=== PATIENT | male | born 1950 | race Caucasian/White ===

== ENCOUNTER 2019-10-11 09:23 | Observation (INO) ==
--- NOTE | 2019-09-14 13:12 | PAT Medication Instructions ---
Medication Instructions Date of Service September 14, 2019 Home Medications clindamycin phosphate 1 applic TOPICAL BID meloxicam 15 mg PO QAM minocycline 50 mg PO QAM zolpidem 10 mg PO HS PRN ASK your surgeon for instructions meloxicam 15 mg PO QAM STOP taking 24 hours before surgery clindamycin phosphate 1 applic TOPICAL BID Take morning of surgery minocycline 50 mg PO QAM Take evening before surgery zolpidem 10 mg PO HS PRN (if needed) Other Notes If you have any questions please call us at [phone] or [phone] or [phone] or [phone]
--- NOTE | 2019-09-17 15:41 | Anesthesiology Consultation ---
Date of Service September 17, 2019 Assessment & Plan (1) Encounter for pre-operative examination: COVID Status: As of 09/16 assessment, patient denies travel to endemic area, known exposure/sick contacts, or symptoms of COVID19. Patient instructed that they and their household members must follow strict social distancing guidelines, wear a mask in public and avoid travel for 14 days prior to surgery. Preoperative COVID19 testing to be completed prior to surgery per surgeon's arra ngements. Patient made aware to self-isolate as much as possible between COVID testing and surgery. Chart Review Chart Review: Acceptable Risk for Surgery and Patient seen in Pre Admission Testing Teaching & Discussion Instructed NPO after midnight before surgery, except medications with 15 cc of water. Medication instructions provided according to the PAT guidelines. History Surgery Operation Date: 10/11/19 11:40 Proposed Procedures p Left Total Knee Arthroplasty - Nixon Mitchell MD Height/Weight Height: 5 ft 11 in Weight: 119 kg Allergies Allergy/AdvReac Type Severity Reaction Status Date / Time No Known Allergies Allergy Verified 09/06/19 15:35 Medications Home Medications Medication Instructions Recorded Confirmed Last Taken clindamycin phosphate 1 applic TOPICAL BID 09/06/19 09/06/19 Unknown meloxicam 15 mg PO QAM 09/06/19 09/06/19 Unknown minocycline 50 mg PO QAM 09/06/19 09/06/19 Unknown zolpidem 10 mg PO HS PRN 09/06/19 09/06/19 Unknown Past Medical History Medical History (Updated 09/18/19 @ 09:41 by Butch Sheth) Obesity Sleep apnea CPAP Exercise / Class Metabolic Activity II 4-5 Yardwork/Stairs/Walk up hill (Denies CP or SOB with 1 FOS) Past Surgical History Surgical History Achilles rupture, left REPAIR Achilles rupture, right REPAIR History of colonoscopy History of tonsillectomy Tarsal tunnel syndrome of left side Past Anesthesia History No Hx of Anesthesia Complications and No Family Hx of Anesthesia Complications History of PONV No Hx of PONV and No Hx of Motion Sickness Social History Smoking Status: Former smoker Do You Dip or Chew Tobacco: No Smoking End Date: QUIT 2009 Hx Alcohol Use: Yes Alcohol type: beer alcohol intake frequency: a few times a week Hx Substance Use: No Review of Systems Pt denies any recent chest pain, shortness of breath, palpitations, cough, fever, URI, or uncontrolled acid reflux. Physical Exam Vital Signs BP: 155/84 P: 70bpm SPO2: 98% RA T: 98.7 F R: 16 ENMT Mouth: + dental restorations (gold overlays on bottom molars); no chipped teeth and no loose teeth Thyromental Distance: > or= 3.5 Finger Breadths (4) Mallampati Class: I Neck + short neck; neck extension not limited Respiratory normal respiratory effort Auscultation: lungs clear to auscultation bilaterally Cardiovascular Rate/Rhythm: regular rate and regular rhythm Heart Sounds: + murmur (I/ systolic mitral area) Extremities: no edema Testing Laboratory Results 09/17/19 15:56 09/17/19 15:56 PT 10.8 Seconds (9.0-12.0) 09/17/19 15:56 INR 1.0 (0.9-1.1) 09/17/19 15:56 APTT 28.1 Seconds (21.0-31.0) 09/17/19 15:56 Hemoglobin A1c 5.7 % (4.5-5.6) H 09/17/19 15:56 Urine Color Dark Yellow 09/17/19 Unknown Urine Appearance Clear (Clear) 09/17/19 Unknown Urine pH 6.0 (4.5-7.5) 09/17/19 Unknown Ur Specific [place] 1.023 (1.000-1.030) 09/17/19 Unknown Urine Protein Negative (Negative) 09/17/19 Unknown Urine Glucose (UA) Negative (Negative) 09/17/19 Unknown Urine Ketones Negative (Negative) 09/17/19 Unknown Urine Nitrite Negative (Negative) 09/17/19 Unknown Ur Leukocyte Esterase Negative (Negative) 09/17/19 Unknown Blood Type O Positive 09/17/19 15:56 Antibody Screen NEGATIVE 09/17/19 15:56 Electrocardiogram Date: 09/17/19 Findings: + NSR @ (64bpm) Chest X-Ray Date: 09/17/19 Findings: + NAD
--- NOTE | 2019-09-17 16:17 | XRay Report ---
XR chest Pre-admission PA/Lat CLINICAL HISTORY: pat preoperative COMPARISON STUDY: No previous studies for comparison. FINDINGS: The bones soft tissues and hemidiaphragms are normal. The cardiomediastinal silhouette is n ormal. The lungs are clear. The pulmonary vasculature is normal. IMPRESSION: Negative chest. ACT 112: Negative or not required by law. The above report was generated using voice recognition software. It may contain grammatical, syntax or spelling errors. Electronically signed by: Lai Cardoza M.D. 09/17/2019 4:15 PM
[2019-09-17 16:19] LABS: Basophils # (auto) 0.04 K/uL (0-0.2); Basophils % (auto) 0.6 %; Eosinophils # (auto) 0.28 K/uL (0-0.5); Eosinophils % (auto) 4.2 %; Hematocrit (blood only) 39.8 % (42-52); Hemoglobin 13.4 g/dL (14.0-18.0); Immature Granulocytes # (auto) 0.01 K/uL (0.00-0.02); Immature Granulocytes % (auto) 0.1 %; Lymphocytes # (auto) 1.48 K/uL (1.2-3.4); Lymphocytes % (auto) 22.2 %; Mean Corpuscular Hemoglobin 30.2 pg (25-34); Mean Corpuscular Hgb Conc 33.7 g/dL (32-36); Mean Corpuscular Volume 89.6 fL (80-100); Mean Platelet Volume 10.9 fL (7.4-10.4); Monocytes # (auto) 1.07 K/uL (0.11-0.59); Neutrophils % (auto) 56.9 %; Platelet Count 136 K/uL (130-400); RDW Coefficient of Variation 13.6 % (11.5-14.5); Red Blood Count 4.44 M/uL (4.7-6.1); White Blood Count 6.68 K/uL (4.8-10.8)
[2019-09-17 16:20] LABS: Appearance Urine Clear (Clear); Bilirubin Urine Negative (Negative); Blood Urine Negative (Negative); Color Urine Dark Yellow; Glucose Urine UA Negative (Negative); Ketones Urine Negative (Negative); Leukocyte Esterase Urine Negative (Negative); Nitrite Urine Negative (Negative); Protein Urine Negative (Negative); Specific Gravity Urine 1.023 (1.000-1.030); Urobilinogen Urine Negative (Negative)
[2019-09-17 16:40] LABS: Partial Thromboplastin Time 28.1 Seconds (21.0-31.0); Prothrombin Time 10.8 Seconds (9.0-12.0)
[2019-09-17 16:43] LABS: Albumin Level 3.5 gm/dl (3.4-5.0); BUN Creatinine Ratio 17.7 (10-20); Calcium 9.2 mg/dl (8.5-10.1); Creatinine Clr Calc Pharmacy 99.1 ml/min; Est GFR (African American) 98.6; Est GFR (Non-African American) 85.1; Potassium 4.1 mmol/L (3.5-5.1)
[2019-09-18 05:40] LABS: Estimated Average Glucose 117 mg/dl; Hemoglobin A1C 5.7 % (4.5-5.6)
--- NOTE | 2019-09-18 06:09 | Electrocardiogram Report ---
Test Reason : Blood Pressure : / mmHG Vent. Rate : 064 BPM Atrial Rate : 064 BPM P-R Int : 168 ms QRS Dur : 086 ms QT Int : 418 ms P-R-T Axes : 069 048 076 degrees QTc Int : 431 ms Normal sinus rhythm No previous ECGs available Confirmed by Alli Tinoco ([id number]) on 09/18/2019 6:09:36 AM Referred By: Nixon Mitchell Confirmed By:Alli Tinoco
--- NOTE | 2019-10-05 12:05 | History & Physical Report ---
Date of Service October 05, 2019 Assessment & Plan (1) Primary osteoarthritis of left knee: Admission and Anticipated Discharge Date Admission Date: Treatment options discussed. He has failed conservative therapy as above. He would like to proceed with surgical intervention. Risks, benefits and alternatives to surgery including but not limited to infection, DVT, pain, stiffness, need for revision surgery, damage to blood vessels, damage to nerves, PE, , were discussed with the patient and they wish to proceed. Plan will be for left total knee arthroplasty at [facility] on 10/11/19. Will plan on ASA 81mg BID x 1 mo for DVT prophylaxis as well as outpatient PT post discharge. All questions answered. F/u post operatively. History of Present Illness Chief Complaint: Left knee pain Primary Care Provider: NO PCP Patient is a 69 year old male with PMHx significant for obesity and QUYEN with c- pap who presents with ongoing left knee pain. Pain and stiffness are interfering with his daily activity. He has failed conservative therapy including cortisone injections, viscoelastic injections, NSAIDs, and radiofrequency ablation. He would like to proceed with left knee replacement. Patient denies headaches, sweats, fevers, chills, double vision, blurred vision, cough, sore throat, dysphagia, chest pain, sob, wheezing, n/v/d/c, numbness, tingling, fatigue, urinary symptoms, mood disorders. ROS positive for left knee pain and stiffness. Allergies Allergy/AdvReac Type Severity Reaction Status Date / Time No Known Allergies Allergy Verified 09/06/19 15:35 Home Medications Home Medications Medication Instructions Recorded Confirmed Type clindamycin phosphate 1 applic TOPICAL BID 09/06/19 09/06/19 History meloxicam 15 mg PO QAM 09/06/19 09/06/19 History minocycline 50 mg PO QAM 09/06/19 09/06/19 History zolpidem 10 mg PO HS PRN 09/06/19 09/06/19 History Past Med/Surg History Medical History (Updated 10/05/19 @ 12:03 by Osbaldo Thompson) Obesity Sleep apnea CPAP Surgical History Achilles rupture, left REPAIR Achilles rupture, right REPAIR History of colonoscopy History of tonsillectomy Tarsal tunnel syndrome of left side Social History Smoking Status: Former smoker Smoking End Date: QUIT 2009; Second Hand Exposure: Yes ( A CHILD); Do You Dip or Chew Tobacco: No; Hx Alcohol Use: Yes Alcohol type: beer Hx Substance Use: No Preferred Language: Malagasy Communication Ability: Effective Railroad Purchasing Agent Required: No Beliefs That Will Affect Care: None Current Living Situation: Spouse Other Information That Helps Us Care for You: No Feels Safe at Home: Yes Safety Concerns: Feels Safe At This Time Review of Systems All systems reviewed & are unremarkable except as noted in HPI & below Physical Exam Constitutional: well developed and well nourished; no acute distress Eyes: PERRL, conjunctivae normal, anicteric sclerae ENMT: external ear and nose normal, oropharynx normal Neck: trachea midline, no thyromegaly Respiratory: normal respiratory effort, lungs clear to auscultation Cardiovascular: RRR, no murmur, no edema Musculoskeletal: Left knee: Skin is normal. No lymphadenopathy is appreciated. Mild effusion, range of motion 2 - 100 flexion, negative anterior drawer, negative posterior drawer, negative Cayla's, knee stable to varus and valgus stress at 0 to 30 of flexion. Tender to palpation medial joint line, positive Mayra's. Skin: no rashes, warm and dry Neurologic: patellar DTR's 2+ bilat, sensation intact Psychiatric: A+Ox3, euthymic affect Results & Data ([facility]) Laboratory Results Lab Results 09/17/19 09/17/19 09/17/19 Range/Units 15:56 15:56 15:56 WBC 6.68 (4.8-10.8) K/uL RBC 4.44 L (4.7-6.1) M/uL Hgb 13.4 L (14.0-18.0) g/dL Hct 39.8 L (42-52) % MCV 89.6 (80-100) fL MCH 30.2 (25-34) pg MCHC 33.7 (32-36) g/dL RDW Std Deviation 45.0 (36.4-46.3) fL RDW Coeff of Jori 13.6 (11.5-14.5) % Plt Count 136 (130-400) K/uL MPV 10.9 H (7.4-10.4) fL Immature Gran % (Auto) 0.1 % Neut % (Auto) 56.9 % Lymph % (Auto) 22.2 % [place] % (Auto) 16.0 % Eos % (Auto) 4.2 % Baso % (Auto) 0.6 % Neut # (Auto) 3.80 (1.4-6.5) K/uL Lymph # (Auto) 1.48 (1.2-3.4) K/uL [place] # (Auto) 1.07 H (0.11-0.59) K/uL Eos # (Auto) 0.28 (0-0.5) K/uL Baso # (Auto) 0.04 (0-0.2) K/uL Immature Gran # (Auto) 0.01 (0.00-0.02) K/uL PT 10.8 (9.0-12.0) Seconds INR 1.0 (0.9-1.1) APTT 28.1 (21.0-31.0) Seconds PTT Ratio 1.0 Sodium (136-145) mmol/L Potassium (3.5-5.1) mmol/L Chloride (98-107) mmol/L Carbon Dioxide (21-32) mmol/L Anion Gap (3-11) BUN (7-18) mg/dl Creatinine (0.6-1.4) mg/dl Est Cr Clr Drug Dosing ml/min Est GFR ( Amer) Est GFR (Non-Af Amer) BUN/Creatinine Ratio (10-20) Glucose (70-99) mg/dl Estimat Average Glucose mg/dl Hemoglobin A1c (4.5-5.6) % Calcium (8.5-10.1) mg/dl Albumin (3.4-5.0) gm/dl Urine Color Urine Appearance (Clear) Urine pH (4.5-7.5) Ur Specific [place] (1.000-1.030) Urine Protein (Negative) Urine Glucose (UA) (Negative) Urine Ketones (Negative) Urine Blood (Negative) Urine Nitrite (Negative) Urine Bilirubin (Negative) Urine Urobilinogen (Negative) Ur Leukocyte Esterase (Negative) Blood Type O Positive Antibody Screen NEGATIVE 09/17/19 09/17/19 09/17/19 Range/Units 15:56 15:56 Unknown WBC (4.8-10.8) K/uL RBC (4.7-6.1) M/uL Hgb (14.0-18.0) g/dL Hct (42-52) % MCV (80-100) fL MCH (25-34) pg MCHC (32-36) g/dL RDW Std Deviation (36.4-46.3) fL RDW Coeff of Jori (11.5-14.5) % Plt Count (130-400) K/uL MPV (7.4-10.4) fL Immature Gran % (Auto) % Neut % (Auto) % Lymph % (Auto) % [place] % (Auto) % Eos % (Auto) % Baso % (Auto) % Neut # (Auto) (1.4-6.5) K/uL Lymph # (Auto) (1.2-3.4) K/uL [place] # (Auto) (0.11-0.59) K/uL Eos # (Auto) (0-0.5) K/uL Baso # (Auto) (0-0.2) K/uL Immature Gran # (Auto) (0.00-0.02) K/uL PT (9.0-12.0) Seconds INR (0.9-1.1) APTT (21.0-31.0) Seconds PTT Ratio Sodium 141 (136-145) mmol/L Potassium 4.1 (3.5-5.1) mmol/L Chloride 110 H (98-107) mmol/L Carbon Dioxide 27 (21-32) mmol/L Anion Gap 5.0 (3-11) BUN 16 (7-18) mg/dl Creatinine 0.91 (0.6-1.4) mg/dl Est Cr Clr Drug Dosing 99.1 ml/min Est GFR ( Amer) 98.6 Est GFR (Non-Af Amer) 85.1 BUN/Creatinine Ratio 17.7 (10-20) Glucose 104 H (70-99) mg/dl Estimat Average Glucose 117 mg/dl Hemoglobin A1c 5.7 H (4.5-5.6) % Calcium 9.2 (8.5-10.1) mg/dl Albumin 3.5 (3.4-5.0) gm/dl Urine Color Dark Yellow Urine Appearance Clear (Clear) Urine pH 6.0 (4.5-7.5) Ur Specific [place] 1.023 (1.000-1.030) Urine Protein Negative (Negative) Urine Glucose (UA) Negative (Negative) Urine Ketones Negative (Negative) Urine Blood Negative (Negative) Urine Nitrite Negative (Negative) Urine Bilirubin Negative (Negative) Urine Urobilinogen Negative (Negative) Ur Leukocyte Esterase Negative (Negative) Blood Type Antibody Screen Diagnostic Findings Left knee radiographs: Bone on bone medial compartment, degenerative changes PF joint. Periarticular osteophyte formation and subchondral sclerosis.
[~2019-10-11 09:23] MED LIST: ACETAMINOPHEN 500 MG TAB PO SCH; BUPIVACAINE 0.25% 30 ML VIAL ONE; BUPIVACAINE 0.5 % 5 MG/1 ML PF 10ML VIAL ONE; CEFAZOLIN 2000MG 2,000 MG/15 ML SYR IV SCH; CeleBREX 200 MG CAP PO SCH; FAMOTIDINE 20 MG TAB PO SCH; GABAPENTIN 300 MG CAP PO SCH; LR 500ML BOLUS, THEN 15ML/HR IV SCH; METOCLOPRAMIDE HCL 10 MG TABLET PO SCH; ROPIVACAINE 0.5% HCL/PF 150 MG, BUPIVACAINE 0.5% MPF 30 ML, EPINEPHrine 30MG/30ML (OR U... INSTIL SCH; dexAMETHasone 4 MG TAB PO SCH
--- NOTE | 2019-10-11 09:50 | History & Physical Bridge Note ---
Date of Service October 11, 2019 History & Physical Bridge Note I have examined the patient, reviewed the History & Physical and in the interval since the performance of the History & Physical I have noted the following changes of clinical significance: no changes noted
[2019-10-11] MEDS ORDERED: fentaNYL citrate 100 MCG/2 ML VIAL ONE (10:03)
[2019-10-11] MEDS ORDERED: MIDAZOLAM HCL 1 MG/ML 2ML VIAL ONE ×2 (10:03)
[2019-10-11] MEDS ORDERED: ORTHO JOINT ANESTHETIC ONE (10:40)
[2019-10-11] MEDS ORDERED: BACITRACIN INJ 50,000 UNIT VIAL ONE (10:40)
[2019-10-11] MEDS ORDERED: ONDANSETRON INJ 2 MG/ML 2 ML VIAL IV PRN ×2 (10:41→14:48)
[2019-10-11] MEDS ORDERED: fentaNYL citrate 100 MCG/2 ML VIAL IV PRN (10:41)
[2019-10-11] MEDS ORDERED: ePHEDrine sulfate 50 MG/ML AMP IV PRN (10:41)
[2019-10-11] MEDS ORDERED: ATROPINE SULFATE 0.1 MG/ML 10ML SYR IV PRN (10:41)
[2019-10-11] MEDS ORDERED: TRANEXAMIC ACID / 0.7% NACL 1000MG/100ML BAG IV ONE (10:52)
[2019-10-11] MEDS ORDERED: TRANEXAMIC ACID / 0.7% NACL 1,000 MG/100 ML BAG IV STA (10:57)
[2019-10-11] MEDS ORDERED: TRANEXAMIC ACID 1,000 MG **IV Intra-op IV STA (10:57)
[2019-10-11] MEDS ORDERED: PROPOFOL IV EMULSION 10 MG/ML 20 ML VIAL IV ONE (11:19)
--- NOTE | 2019-10-11 12:38 | Operative Report ---
Post Operative Report Pre & Post Diagnosis Operation Date: 10/11/19 11:35 Pre-Op Diagnosis: Unilateral Primary Osteoarthritis, Left Knee Post-Op Diagnosis: Unilateral Primary Osteoarthritis, Left Knee I identified the patient and participated in the time-out.: Yes Procedure Operation Date: 10/11/19 11:35 Actual Procedures p Left Total Knee Arthroplasty, Cemented(Left) - Nixon Mitchell MD Surgeon Nixon Mitchell MD Figurine Maker Osbaldo Thompson PA-C Estimated Blood Loss 20 Findings Consistent with Post-Op Diagnosis Specimens Bone and tissue Drains None Anesthesia Type MAC Spinal Regional Complications none Disposition Accompanied Patient To Recovery: No Disposition: Recovery Room Indications The patient is a 69-year-old male with longstanding arthritic change in the left knee. He is [id number] in the medial compartment. He has failed conservative measures including injection, anti-inflammatories and rehab. He wishes to proceed with a left total knee arthroplasty. Description of Procedure Risks benefits and alternatives of surgery including but not limited to infection, DVT, pain, stiffness, need for surgery, damage to blood vessels, damage to nerves or risks of anesthesia were discussed with the patient and they wished to proceed. The patient was identified and the laterality was confirmed and marked. They received a preoperative antibiotic as well as a spinal anesthetic and an abductor canal block. A well-padded tourniquet was applied and then the limb was prepped and draped in standard manner with ChloraPrep. The limb was exsanguinated and the tourniquet was inflated. I made a standard anterior incision. I sharply incised the skin then utilized Bovie electrocautery to achieve hemostasis. I made a medial parapatellar arthrotomy and mobilized the patella laterally. I then excised the anterior horns of the medial and lateral meniscus as well as the infrapatellar fat pad. I elevated a portion of the MCL off of the tibia. I then pinned into place a patient-matched distal femoral cutting guide and made my distal femoral resection. I then pinned into place the 5 in 1 femoral cutting guide. I made my anterior, posterior and chamfer cuts. I then excised the cruciates and the remaining portions of the menisci. I then pinned into place a patient- matched tibial cutting guide and made my tibial resection. I then pinned into place the tibial plate a utilizing alignment dia to confirm rotation. I then cut for the post. Utilizing a lamina dry primer powder blender and I then removed posterior osteophytes off the femur. I then placed a trial femur into position and cut for the trochlear component. I then sequentially trialed to size the polyethylene until there was good soft tissue balancing and range of motion. I then prepared the patella with a freehand cut utilizing sagittal saw. I sized and drilled for the patella. There was good tracking to the patella no lateral release was needed. All the trial components were removed. The deep tissues were anesthetized with an ortho mix solution. Then with Simplex HV with gentamicin cement, I cemented my definitive components. Definitive components, Ervin and Nephew Journey 2: Femur 7 Tibia 6 Poly 9 Patella 35 oval A betadine soak was performed. The arthrotomy was closed with interrupted #1 Vicryl suture subcutaneous tissue was closed with interrupted 2-0 Vicryl suture. The skin was closed with with willi. An Acticoat and Mata dressing were placed. Sterile dressings were applied. All needle and sponge counts were correct at the end of the procedure patient was transferred to the PACU in stable condition without apparent complication. The PA-C was necessary for assistance with procedure for assistance in positioning, prepping, draping, retraction and closure. I attest to the content of the Intraoperative Record and any orders documented therein. Any exceptions are noted below.
--- NOTE | 2019-10-11 13:50 | XRay Report ---
XR knee LT 1 or 2V routine HISTORY: 69 years-old Male Surgical Post Op [total joint arthroplasty COMPARISON: None TECHNIQUE: 2 views of the left knee FINDINGS: Left knee total joint arthroplasty and patella resurfacing. No unexpected radiopaque foreign body, ma lalignment or acute fracture. Anterior midline skin willi are noted along with expected postoperati ve soft tissue swelling and deep tissue air with surgical drainage catheter. IMPRESSION: Left knee total joint arthroplasty with expected postoperative changes. ACT 112: Negative or not required by law. The above report was generated using voice recognition software. It may contain grammatical, syntax o r spelling errors. Electronically signed by: Krishna Tubbs M.D. 10/11/2019 1:49 PM
[2019-10-11] MEDS ORDERED: MAGNESIUM HYDROXIDE SUSP 30 ML UDC PO PRN (14:48)
[2019-10-11] MEDS ORDERED: bisacodyL 10 MG SUPP PR PRN (14:48)
[2019-10-11] MEDS ORDERED: TAMSULOSIN HCL 0.4 MG CAP PO PRN (14:48)
[2019-10-11] MEDS ORDERED: METOCLOPRAMIDE HCL INJ 5 MG/ML 2 ML VIAL IV PRN (14:48)
[2019-10-11] MEDS ORDERED: NALOXONE HCL 0.4 MG/1 ML VIAL/CARP IV PRN (14:48)
[2019-10-11] MEDS ORDERED: ZOLPIDEM TARTRATE 10 MG TAB PO PRN (14:48)
[2019-10-11] MEDS ORDERED: HYDROmorphone INJ 0.5 MG/0.5 ML SYR IV PRN (14:48)
[2019-10-11] MEDS: SODIUM CHLORIDE 0.9% 1000ML 1,000 ML IV SCH (15:33)
[2019-10-11] MEDS: ACETAMINOPHEN 500 MG TAB PO SCH ×2 (15:33→21:39)
--- NOTE | 2019-10-11 17:37 | Anesthesiology Progress Note ---
Date of Service October 11, 2019 Anesthesia Post Procedure Vital Signs Vital Signs: Temp Pulse Pulse Resp BP BP Pulse Ox 10/11/19 16:41 36.6 C 64 18 154/78 H 96 10/11/19 15:35 36.6 C 62 18 162/90 H 95 10/11/19 15:09 36.6 C 60 18 159/76 H 97 10/11/19 14:35 36.7 C 57 L 18 139/83 96 10/11/19 14:25 36.4 C L 60 16 142/77 H 95 10/11/19 14:15 60 15 137/78 95 10/11/19 14:05 54 L 16 131/77 95 10/11/19 13:55 56 L 17 122/77 96 10/11/19 13:45 65 16 135/73 95 10/11/19 13:35 71 15 128/77 99 10/11/19 13:28 36.1 C L 73 16 141/78 H 100 10/11/19 10:04 36.7 C 71 18 164/92 H 98 Transfer of Care Handoff Completed per policy Notes Mental Status: alert / awake / arousable and participated in evaluation Patient Amnestic to Procedure: Yes Nausea / Vomiting: adequately controlled Pain: adequately controlled Airway Patency, RR, SpO2: stable & adequate BP & HR: stable & adequate Hydration State: stable & adequate Neuraxial Anesthesia: was administered and sensory block is resolving Anesthetic Complications: no major complications apparent and Pt Satisfied with anesthetic care
[2019-10-11] MEDS: CEFAZOLIN 2000MG 2,000 MG/15 ML SYR IV SCH (19:40)
[2019-10-11] MEDS ORDERED: SENNA 8.6 MG TAB PO SCH (21:00)
[2019-10-11] MEDS: ASPIRIN 81 MG ECTAB PO SCH (21:38)
[2019-10-11] MEDS: DOCUSATE SODIUM 100 MG CAP PO SCH (21:38)
[2019-10-11] MEDS: CeleBREX 200 MG CAP PO SCH (21:38)
[2019-10-11] MEDS: OXYCODONE HCL IR 5 MG TAB (IMMEDIATE RELEASE) PO PRN (22:08)
[2019-10-12] MEDS: SODIUM CHLORIDE 0.9% 1000ML 1,000 ML IV SCH (02:03)
[2019-10-12] MEDS: OXYCODONE HCL IR 5 MG TAB (IMMEDIATE RELEASE) PO PRN ×2 (03:03→08:28)
[2019-10-12] MEDS: CEFAZOLIN 2000MG 2,000 MG/15 ML SYR IV SCH (03:40)
[2019-10-12] MEDS: ACETAMINOPHEN 500 MG TAB PO SCH (05:37)
[2019-10-12 06:42] LABS: Hematocrit (blood only) 36.3 % (42-52); Hemoglobin 11.8 g/dL (14.0-18.0); Mean Corpuscular Hemoglobin 29.6 pg (25-34); Mean Corpuscular Hgb Conc 32.5 g/dL (32-36); Platelet Count 142 K/uL (130-400); RDW Coefficient of Variation 13.9 % (11.5-14.5); RDW Standard Deviation 46.1 fL (36.4-46.3); Red Blood Count 3.99 M/uL (4.7-6.1); White Blood Count 14.39 K/uL (4.8-10.8)
[2019-10-12 07:15] LABS: BUN Creatinine Ratio 18.2 (10-20); Calcium 8.6 mg/dl (8.5-10.1); Est GFR (African American) 103.8; Est GFR (Non-African American) 89.6; Potassium 4.2 mmol/L (3.5-5.1)
--- NOTE | 2019-10-12 07:44 | Orthopedic Progress Note ---
Date of Service October 12, 2019 Assessment & Plan (1) Primary osteoarthritis of left knee: POD#1 Left TKA -Pain management -DVT prophylaxis-ASA 81 mg BID x 1 mo -PT/OT -AM labs-hemoglobin this morning at 11.8 from 13.4 preop. Leukocytosis likely due to post surgical and preop steroids -D/C planning-home with plans on OPPT likely today as long as PT goes well. Admission and Anticipated Discharge Date Admission Date: October 11, 2019 Subjective Patient doing well this morning. Pain well controlled. Hoping to go home today. No complaints. Denies chest pain, sob, dizziness, n/v/d. Review of Systems Review of Systems: All systems reviewed & are unremarkable except as noted in HPI & below Physical Exam Physical Exam: Left knee dressing is c/d/i, toes mobile with good dorsiflexion. No calf tenderness. Distally n/v status and sensation intact. Constitutional: well developed and well nourished; no acute distress Results & Data ([facility]) Vital Signs (Past 12 Hours) Vital Signs Temp Pulse Resp BP Pulse Ox 10/12/19 07:36 36.6 C 59 L 16 120/73 96 10/12/19 02:55 37.0 C 68 16 135/74 95 10/11/19 22:54 37.1 C 61 16 133/70 96 10/11/19 21:29 36.8 C 62 18 138/72 95 Laboratory Results H & H 09/17/19 10/12/19 Range/Units 15:56 05:17 Hgb 13.4 L 11.8 L (14.0-18.0) g/dL Hct 39.8 L 36.3 L (42-52) % Coagulation 09/17/19 Range/Units 15:56 INR 1.0 (0.9-1.1)
[2019-10-12] MEDS: ASPIRIN 81 MG ECTAB PO SCH (08:29)
[2019-10-12] MEDS: DOCUSATE SODIUM 100 MG CAP PO SCH (08:29)
[2019-10-12] MEDS: CeleBREX 200 MG CAP PO SCH (08:29)
[2019-10-12] MEDS ORDERED: MULTIVITAMIN TAB PO SCH (09:00)
--- NOTE | 2019-10-16 14:45 | Discharge Summary ---
Date of Service October 16, 2019 Admission HPI Per Admitting Provider Patient is a 69 year old male with PMHx significant for obesity and QUYEN with c- pap who presents with ongoing left knee pain. Pain and stiffness are interfering with his daily activity. He has failed conservative therapy including cortisone injections, viscoelastic injections, NSAIDs, and radiofrequency ablation. He would like to proceed with left knee replacement. Patient denies headaches, sweats, fevers, chills, double vision, blurred vision, cough, sore throat, dysphagia, chest pain, sob, wheezing, n/v/d/c, numbness, tingling, fatigue, urinary symptoms, mood disorders. ROS positive for left knee pain and stiffness. Admission Exam Per Admitting Provider Constitutional: well developed and well nourished; no acute distress Eyes: PERRL, conjunctivae normal, anicteric sclerae ENMT: external ear and nose normal, oropharynx normal Neck: trachea midline, no thyromegaly Respiratory: normal respiratory effort, lungs clear to auscultation Cardiovascular: RRR, no murmur, no edema Musculoskeletal: Left knee: Skin is normal. No lymphadenopathy is appreciated. Mild effusion, range of motion 2 - 100 flexion, negative a nterior drawer, negative posterior drawer, negative Cayla's, knee stable to varus and valgus stress at 0 to 30 of flexion. Tender to palpation medial joint line, positive Mayra's. Skin: no rashes, warm and dry Neurologic: patellar DTR's 2+ bilat, sensation intact Psychiatric: A+Ox3, euthymic affect Principal Diagnosis Left knee osteoarthritis Discharge Exam Constitutional well developed and well nourished; no acute distress Eyes PERRL, conjunctivae normal, anicteric sclerae ENMT external ear and nose normal, oropharynx normal Neck trachea midline, no thyromegaly Respiratory normal respiratory effort, lungs clear to auscultation Cardiovascular RRR, no murmur, no edema Skin no rashes, warm and dry Neurologic patellar DTR's 2+ bilat, sensation intact Psychiatric A+Ox3, euthymic affect Discharge Data Allergies Allergy/AdvReac Type Severity Reaction Status Date / Time No Known Allergies Allergy Verified 10/11/19 09:58 Consultations 10/11/19 14:48 Consult Case Management - Discharge Planning Routine Procedures Performed Operation Date: 10/11/19 11:35 Actual Procedures p Left Total Knee Arthroplasty, Cemented(Left) - Nixon Mitchell MD Ordered Studies 10/11/19 05:00 US - OR guided needle placemen Routine Hospital Course (1) Primary osteoarthritis of left knee: Patient presented for same day admission following left total knee arthroplasty on 10/11/19. He tolerated procedure well. The Patient had an uneventful hospital course. Post-operatively, his activity was progressed and well tolerated. They participated in PT with ambulation distance of 325 feet. ROM of operative knee reached 80 degrees. Labs remained stable- lowest hemoglobin recorded: 11.8. Pain controlled on oral medications. Please refer to daily progress notes and PT notes for complete details. After exam on 10/12/19, patient was felt to be stable for discharge home with outpatient PT. Patient will f/u in the office in about 2 weeks for further evaluation including x-rays and incision check, sooner if having any issues or concerns. POD#1 Left TKA -Pain management -DVT prophylaxis-ASA 81 mg BID x 1 mo -PT/OT -AM labs-hemoglobin this morning at 11.8 from 13.4 preop. Leukocytosis likely due to post surgical and preop steroids -D/C planning-home with plans on OPPT likely today as long as PT goes well. Lab Results 09/17/19 09/17/19 09/17/19 Range/Units 15:56 15:56 15:56 WBC 6.68 (4.8-10.8) K/uL RBC 4.44 L (4.7-6.1) M/uL Hgb 13.4 L (14.0-18.0) g/dL Hct 39.8 L (42-52) % MCV 89.6 (80-100) fL MCH 30.2 (25-34) pg MCHC 33.7 (32-36) g/dL RDW Std Deviation 45.0 (36.4-46.3) fL RDW Coeff of Jori 13.6 (11.5-14.5) % Plt Count 136 (130-400) K/uL MPV 10.9 H (7.4-10.4) fL Immature Gran % (Auto) 0.1 % Neut % (Auto) 56.9 % Lymph % (Auto) 22.2 % Irwin % (Auto) 16.0 % Eos % (Auto) 4.2 % Baso % (Auto) 0.6 % Neut # (Auto) 3.80 (1.4-6.5) K/uL Lymph # (Auto) 1.48 (1.2-3.4) K/uL Irwin # (Auto) 1.07 H (0.11-0.59) K/uL Eos # (Auto) 0.28 (0-0.5) K/uL Baso # (Auto) 0.04 (0-0.2) K/uL Immature Gran # (Auto) 0.01 (0.00-0.02) K/uL PT 10.8 (9.0-12.0) Seconds INR 1.0 (0.9-1.1) APTT 28.1 (21.0-31.0) Seconds PTT Ratio 1.0 Sodium (136-145) mmol/L Potassium (3.5-5.1) mmol/L Chloride (98-107) mmol/L Carbon Dioxide (21-32) mmol/L Anion Gap (3-11) BUN (7-18) mg/dl Creatinine (0.6-1.4) mg/dl Est Cr Clr Drug Dosing ml/min Est GFR ( Amer) Est GFR (Non-Af Amer) BUN/Creatinine Ratio (10-20) Glucose (70-99) mg/dl Estimat Average Glucose mg/dl Hemoglobin A1c (4.5-5.6) % Calcium (8.5-10.1) mg/dl Albumin (3.4-5.0) gm/dl Urine Color Urine Appearance (Clear) Urine pH (4.5-7.5) Ur Specific [place] (1.000-1.030) Urine Protein (Negative) Urine Glucose (UA) (Negative) Urine Ketones (Negative) Urine Blood (Negative) Urine Nitrite (Negative) Urine Bilirubin (Negative) Urine Urobilinogen (Negative) Ur Leukocyte Esterase (Negative) Blood Type O Positive Antibody Screen NEGATIVE 09/17/19 09/17/19 09/17/19 Range/Units 15:56 15:56 Unknown WBC (4.8-10.8) K/uL RBC (4.7-6.1) M/uL Hgb (14.0-18.0) g/dL Hct (42-52) % MCV (80-100) fL MCH (25-34) pg MCHC (32-36) g/dL RDW Std Deviation (36.4-46.3) fL RDW Coeff of Jori (11.5-14.5) % Plt Count (130-400) K/uL MPV (7.4-10.4) fL Immature Gran % (Auto) % Neut % (Auto) % Lymph % (Auto) % Irwin % (Auto) % Eos % (Auto) % Baso % (Auto) % Neut # (Auto) (1.4-6.5) K/uL Lymph # (Auto) (1.2-3.4) K/uL Irwin # (Auto) (0.11-0.59) K/uL Eos # (Auto) (0-0.5) K/uL Baso # (Auto) (0-0.2) K/uL Immature Gran # (Auto) (0.00-0.02) K/uL PT (9.0-12.0) Seconds INR (0.9-1.1) APTT (21.0-31.0) Seconds PTT Ratio Sodium 141 (136-145) mmol/L Potassium 4.1 (3.5-5.1) mmol/L Chloride 110 H (98-107) mmol/L Carbon Dioxide 27 (21-32) mmol/L Anion Gap 5.0 (3-11) BUN 16 (7-18) mg/dl Creatinine 0.91 (0.6-1.4) mg/dl Est Cr Clr Drug Dosing 99.1 ml/min Est GFR ( Amer) 98.6 Est GFR (Non-Af Amer) 85.1 BUN/Creatinine Ratio 17.7 (10-20) Glucose 104 H (70-99) mg/dl Estimat Average Glucose 117 mg/dl Hemoglobin A1c 5.7 H (4.5-5.6) % Calcium 9.2 (8.5-10.1) mg/dl Albumin 3.5 (3.4-5.0) gm/dl Urine Color Dark Yellow Urine Appearance Clear (Clear) Urine pH 6.0 (4.5-7.5) Ur Specific [place] 1.023 (1.000-1.030) Urine Protein Negative (Negative) Urine Glucose (UA) Negative (Negative) Urine Ketones Negative (Negative) Urine Blood Negative (Negative) Urine Nitrite Negative (Negative) Urine Bilirubin Negative (Negative) Urine Urobilinogen Negative (Negative) Ur Leukocyte Esterase Negative (Negative) Blood Type Antibody Screen 10/12/19 10/12/19 Range/Units 05:17 05:17 WBC 14.39 H (4.8-10.8) K/uL RBC 3.99 L (4.7-6.1) M/uL Hgb 11.8 L (14.0-18.0) g/dL Hct 36.3 L (42-52) % MCV 91.0 (80-100) fL MCH 29.6 (25-34) pg MCHC 32.5 (32-36) g/dL RDW Std Deviation 46.1 (36.4-46.3) fL RDW Coeff of Jori 13.9 (11.5-14.5) % Plt Count 142 (130-400) K/uL MPV 12.0 H (7.4-10.4) fL Immature Gran % (Auto) % Neut % (Auto) % Lymph % (Auto) % Irwin % (Auto) % Eos % (Auto) % Baso % (Auto) % Neut # (Auto) (1.4-6.5) K/uL Lymph # (Auto) (1.2-3.4) K/uL Irwin # (Auto) (0.11-0.59) K/uL Eos # (Auto) (0-0.5) K/uL Baso # (Auto) (0-0.2) K/uL Immature Gran # (Auto) (0.00-0.02) K/uL PT (9.0-12.0) Seconds INR (0.9-1.1) APTT (21.0-31.0) Seconds PTT Ratio Sodium 142 (136-145) mmol/L Potassium 4.2 (3.5-5.1) mmol/L Chloride 112 H (98-107) mmol/L Carbon Dioxide 22 (21-32) mmol/L Anion Gap 8.0 (3-11) BUN 15 (7-18) mg/dl Creatinine 0.82 (0.6-1.4) mg/dl Est Cr Clr Drug Dosing 110.0 ml/min Est GFR ( Amer) 103.8 Est GFR (Non-Af Amer) 89.6 BUN/Creatinine Ratio 18.2 (10-20) Glucose 125 H (70-99) mg/dl Estimat Average Glucose mg/dl Hemoglobin A1c (4.5-5.6) % Calcium 8.6 (8.5-10.1) mg/dl Albumin (3.4-5.0) gm/dl Urine Color Urine Appearance (Clear) Urine pH (4.5-7.5) Ur Specific [place] (1.000-1.030) Urine Protein (Negative) Urine Glucose (UA) (Negative) Urine Ketones (Negative) Urine Blood (Negative) Urine Nitrite (Negative) Urine Bilirubin (Negative) Urine Urobilinogen (Negative) Ur Leukocyte Esterase (Negative) Blood Type Antibody Screen Total Time Total Time Spent Total Time Spent (In Minutes): 20 Discharge Plan Discharge Items Patient Disposition: Home - Self-Care Reason For Visit: Unilateral Primary Osteoarthritis, Left Knee Discharge Diagnosis: Left knee osteoarthritis Activity: Per Instructions section Non-emergency contact: Surgeon Call non-emergency contact if: you have any medication questions, your pain is not controlled, your pain is worsening, your pain is concerning for you, you have a fever, your temperature is above 101, your wound has increased redness, your wound has increased drainage and your wound pain has increased Follow-up/Referrals: PCP,NO [Primary Care Provider] - Diet: Regular Addtl Attending Provider Instructions: ACTIVITY RECOMMENDATIONS: SELF CARE INSTRUCTIONS AFTER TOTAL KNEE REPLACEMENT A. You may need to continue a physical therapy program after discharge from the hospital. There are several options available to you. Your doctor will assist you in selecting the best one for you. 1. An out-patient facility 2 to 3 times a week for therapy or home therapy. 2. Continue working on all exercises taught to you in the hospital. Your goals should be to increase bending of your knee to 90 degrees and beyond and to fully straighten your knee. B. You may progress at your own pace from walking with a walker or crutches to a cane; then to no assistive devices. C. Make walking a part of your daily routine. Be up as much as comfortable with rest periods throughout the day. Rest with leg elevation is very important. Use the ice wrap frequently for the first 3-4 weeks. D. There are no restrictions on activities. You may ride in a car, shop, participate in director funds development and all social activities. E. Wear the long elastic stockings (MJ hose) 20 hours a day for 2 weeks after surgery. They can be removed several times a day for laundering and for a bath. F. You may shower, no tub baths until cleared by your doctor. SPECIAL CARE INSTRUCTIONS: VERY IMPORTANT TO READ AND REVIEW A. There are a few signs you need to watch for after you are home. Call [facility] if you notice any of the followin. Increased severe knee pain. Some pain is expected especially when you exercise. 2. Increased swelling in your leg or knee; pain or swelling of the calf muscle in either lower leg. 3. Any fluid drainage from the incision. 4. Shortness of breath or chest pain. B. Please call [facility] at if you have any concerns or questions about your operation or recovery. The doctor or his nurse will return your call promptly. C. You must take antibiotics before dental work, bladder, bowel or other surgery. Your doctor will provide you with a permanent care to carry describing this precaution. IMPORTANT: * REMEMBER TO TAKE ASPIRIN, 81 MG, TWICE DAILY FOR 4 WEEKS UNLESS OTHERWISE DIRECTED. THIS IS YOUR BLOOD THINNER. * HIGH RISK PATIENTS MAY BE PRESCRIBED A STRONGER BLOOD THINNER. THIS WILL BE PROVIDED AT DISCHARGE. * CALL IF INCREASED PAIN, REDNESS, DRAINAGE OR FEVER GREATER THAT 101. * WEAR MJ HOSE 20 HOURS PER DAY FOR 2 WEEKS. This is a large suction dressing covering your incision. This will help pull any excess drainage from the wound and allow your incision to heal properly. You may shower with this if you can keep the unit outside of the shower. If any bleeding or leakage is noted please call your doctor's office. This will remain on your incision for 7 days and then should be removed. This can be done yourself or by the home nursing staff if applicable. The entire unit is disposable once removed. Once removed, keep incision clean and dry. If redness or drainage is noted, please call your surgeon. FOLLOW UP VISIT: If appointment is not already scheduled: Please call [facility] to make a follow-up appointment for 2 weeks after your surgery at . Pending Studies at Discharge: No Stand-Alone Forms: [facility] [employer] [facility], Opioid Pain Management, Smoking Cessation Medications and DC Order Prescriptions: New celecoxib [Celebrex] 200 mg Capsule 200 mg PO BID Qty: 60 RF: 0 aspirin 81 mg Tablet,Delayed Release (Dr/Ec) 81 mg PO BID Qty: 60 RF: 0 acetaminophen 500 mg Tablet 1,000 mg PO Q8 Qty: 60 RF: 0 oxycodone 5 mg Tablet 5 - 10 mg PO .Q4h-6h MDD 6 PRN (Reason: pain) Qty: 30 RF: 0 Continued clindamycin phosphate 1 % Gel 1 applic TOPICAL BID RF: 0 minocycline 50 mg Capsule 50 mg PO QAM RF: 0 zolpidem 10 mg Tablet 10 mg PO HS PRN (Reason: Sleep) RF: 0 Discontinued meloxicam 15 mg Tablet 15 mg PO QAM RF: 0 Discharge Orders: Discharge Order (Routine); Ordered 10/12/19 Ordered By: Osbaldo Connors/Other Patient Handouts: DVT Post Op Prevention Admission Data Admit Date/Time: 10/11/19 13:32 Attending Provider: Nixon Mitchell Admit Provider: Nixon Mitchell Primary Care Provider: PCP,NO Other Interventions: Discharge Summary Assessment (RN) Last Done: 10/12/19 09:44
== END 2019-10-12 13:48 | disposition home or self-care (01) ==
LOC: ASU 09:23 → 3E 09:23